=== PATIENT | female | born 1990 | race Caucasian/White ===

== ENCOUNTER 2019-10-29 09:56 | Emergency (ER) | payer OTHER, SELFPAY ==
[2019-10-29 10:00] VITALS: BP 132/82; PULSE 80; RESP 18; TEMP 37.1; O2SAT 98
--- NOTE | 2019-10-29 11:07 | ED.ABDPAIN ---
HPI - Abdominal Pain General Chief Complaint: Abdominal Pain Stated Complaint: stomach issues Time Seen by Provider: 10/29/19 10:14 Source: patient Mode of arrival: Ambulatory Limitations: no limitations History of Present Illness HPI narrative: Patient comes emergency department stating that her boss told her to come in because she is having diarrhea and low abdominal cramping. The patient states she is on the 2nd day of her period, which also causes her to cramps. She states that every time she is ready to have another bout of diarrhea, her cramps become much worse. Patient denies blood in her stools. She states that the diarrhea started around midnight last night. She denies any nausea or vomiting. No fevers. No abdominal pain other than cramping. She states she has not had any sick contacts that she knows of. No exotic travel. No new medications. No other complaints at this time. Related Data Home Medications Medication Instructions Recorded Confirmed citalopram 40 mg PO DAILY 10/29/19 10/29/19 Previous Rx's Medication Instructions Recorded loperamide [Imodium A-D] 2 mg PO Q4H PRN #10 tab 10/29/19 Allergies Allergy/AdvReac Type Severity Reaction Status Date / Time No Known Drug Allergies Allergy Verified 10/29/19 10:38 Review of Systems Constitutional Constitutional: Denies chills, Denies fatigue, Denies fever(s), Denies frequent falls, Denies lethargy and Denies weakness Eyes Eyes: Denies change in vision, Denies eye discharge, Denies irritation and Denies loss of vision ENT Ears, Nose, Mouth, and Throat: Denies change in voice, Denies dizziness, Denies neck pain, Denies sore throat and Denies throat swelling Cardiovascular Cardiovascular: Denies chest pain, Denies irregular heart rhythm, Denies lightheadedness, Denies palpitations, Denies dyspnea, Denies dyspnea on exertion and Denies orthopnea Respiratory Respiratory: Denies cough, Denies dyspnea, Denies dyspnea on exertion and Denies wheezing Gastrointestinal Gastrointestinal: Denies change in bowel habits, Reports cramping, Reports diarrhea, Denies nausea and Denies vomiting Genitourinary Genitourinary: Denies hematuria, Denies flank pain, Denies urinary incontinence and Denies urinary urgency Musculoskeletal Musculoskeletal: Denies back pain, Denies muscle weakness, Denies neck pain, Denies numbness and Denies tingling Integumentary/Breasts Skin/Breast: Denies pruritus, Denies erythema, Denies rash and Denies wounds Neurologic Neurologic: Denies behavioral changes, Denies confusion, Denies dizziness, Denies frequent falls, Denies loss of vision, Denies numbness, Denies tingling and Denies weakness Psychiatric Psychiatric: Denies anxiety, Denies behavioral changes, Denies confusion, Denies depression, Denies homicidal ideation and Denies suicidal ideation Endocrine Endocrine: Denies fatigue, Denies flushing and Denies palpitations Hematologic/Lymphatic Hematologic/Lymphatic: Denies easy bruising Allergic/Immunologic Allergic/Immunologic: Denies urticaria, Denies throat swelling and Denies wheezing Patient History Medical History Healthy adult (Acute) Social History Smoking Status: Never smoker Smoking Status: Never smoker alcohol intake frequency: 0-2 drinks per day Substance Use Type: does not use Exam Initial Vital Signs Initial Vital Signs: Vital Signs Temperature 98.7 F 10/29/19 10:00 Pulse Rate 80 10/29/19 10:00 Respiratory Rate 18 10/29/19 10:00 Blood Pressure 132/82 10/29/19 10:00 Pulse Oximetry 98 10/29/19 10:00 Const General: cooperative and well developed Nutritional Appearance: well nourished Orientation: alert, awake, oriented x3 and not confused [facility] Head: normocephalic and atraumatic Ears: external ears normal Nose: external nose normal and No nasal discharge Face and sinus: face symmetric and No dry mucous membranes Mouth: oral mucosae normal and moist mucous membranes Teeth and gingiva: dentition normal Eyes General: appearance normal, both eyes and all related structures Eyelids: eyelids normal Conjunctivae: conjunctivae normal Sclera: sclerae normal Pupils: PERRL EOM: EOM intact bilaterally Neck Neck: normal visual inspection, trachea midline, No lymphadenopathy, No midline deformity and No JVD Lymphatic: No lymphedema Chest Chest: normal inspection of the chest Resp Effort & Inspection: normal respiratory effort, able to speak in complete sentences, no respiratory distress and no use of accessory muscles Auscultation: clear to auscultation bilaterally, no rales, no rhonchi and no wheezes Cardio Rate: regular rate Rhythm: regular rhythm Heart Sounds: no click, no gallops, no murmurs and no rubs Pulses: normal peripheral pulses GI Inspection: non-distended Palpation: soft, no hepatosplenomegaly, No guarding, No pulsatile mass and No tender Auscultation: normal bowel sounds Back/Spine/Pelvis Back: No CVA tenderness Cervical Spine: cervical ROM normal and No pain with cervical ROM Thoracic/Lumbar Spine: thoracic and lumbar spine normal to inspection Skin General: no rashes or lesions noted, No jaundice and No petechiae Neuro General: alert, oriented x3, gait normal and no focal motor deficits Speech: speech normal Extrem General: full ROM, no clubbing, cyanosis or edema, no pedal edema and no calf tenderness Psych Appearance: well kempt Mental Status: mental status grossly normal Attitude: cooperative Thought Content: normal and suicidality Judgment: judgment good Course Course Course Narrative: The patient was very well-appearing, and I did discuss with her that this is most likely a viral illness, and as such, will be self-limited. We've discussed home management of the symptoms, as well as the usual indications for return. Vital Signs Vital signs: Vital Signs - 8 hr 10/29/19 10:00 Temperature 98.7 F Pulse Rate 80 Respiratory Rate 18 Blood Pressure 132/82 Pulse Oximetry 98 MDM - Abdominal Pain Medical Records Attestation: I reviewed the patient's medical records. Discharge Plan Departure Patient Disposition: Home Clinical Impression: Enteritis Discharge Date/Time: 10/29/19 11:13 Instructions: DI for Diarrhea and Traveler's Diarrhea -- Adult Prescriptions: New loperamide [Imodium A-D] 2 mg tablet 2 mg PO Q4H PRN (Reason: loose stool) Qty: 10 RF: 0 No Action citalopram 40 mg tablet 40 mg PO DAILY RF: 0 Stand Alone Forms: Work Release Note
[2019-10-29 11:12] VITALS: BP 122/78; PULSE 73; RESP 14; O2SAT 100
== END 2019-10-29 11:13 | disposition home or self-care (01) ==
PROVIDERS: Emergency Provider Emergency Medicine
DX: K52.9 Noninfective gastroenteritis and colitis, unspecified (principal)
CPT/HCPCS: 99281

== ENCOUNTER 2019-12-12 07:45 | Emergency (ER) | payer OTHER, SELFPAY ==
[2019-12-12 07:51] VITALS: BP 147/78; PULSE 76; RESP 16; TEMP 36.6; O2SAT 98; BMI 25.9
--- NOTE | 2019-12-12 07:55 | ED_ITS ---
HPI - Skin/Abscess/Foreign Bdy General Chief complaint: Skin/Abscess/Foreign Body Stated complaint: LACERATION TO HEAD,RIGHT EYE SWOLLEN Time Seen by Provider: 12/12/19 07:54 Source: patient Mode of arrival: Ambulatory Limitations: no limitations History of Present Illness HPI narrative: 29-year-old female nonsmoker with noncontributory medical history presents with a chief complaint of waking up with forehead swelling and swelling above her left eye and eyelid. She has no visual change in denies any pain, redness nor fever or chills. She was seen at an outside facility a few days ago after tripping and falling and suffering a laceration on her forehead which was repaired with sutures. She did not have imaging but denied any loss of consciousness, decreased mental status, vomiting or use of blood thinners. She is otherwise well and free of complaint MD complaint: other Onset (ago): hour(s) Tetanus up to date: yes Location: face Severity: mild Relieving factors: none Exacerbating factors: none Associated symptoms: denies other symptoms Treatments prior to arrival: none Related Data Home Medications Medication Instructions Recorded Confirmed citalopram 40 mg PO DAILY 10/29/19 10/29/19 Previous Rx's Medication Instructions Recorded loperamide [Imodium A-D] 2 mg PO Q4H PRN #10 tab 10/29/19 Allergies Allergy/AdvReac Type Severity Reaction Status Date / Time No Known Drug Allergies Allergy Verified 12/12/19 07:51 Review of Systems Constitutional Constitutional: Denies chills, Denies fatigue, Denies fever(s), Denies frequent falls, Denies lethargy and Denies weakness Eyes Eyes: Denies change in vision, Denies eye discharge, Denies irritation and Denies loss of vision ENT Ears, Nose, Mouth, and Throat: Denies change in voice, Denies dizziness, Denies neck pain, Denies sore throat and Denies throat swelling Cardiovascular Cardiovascular: Denies chest pain, Denies irregular heart rhythm, Denies lightheadedness, Denies palpitations, Denies dyspnea, Denies dyspnea on exertion and Denies orthopnea Respiratory Respiratory: Denies cough, Denies dyspnea, Denies dyspnea on exertion and Denies wheezing Gastrointestinal Gastrointestinal: Denies abdominal pain, Denies change in bowel habits, Denies diarrhea, Denies nausea and Denies vomiting Genitourinary Genitourinary: Denies hematuria, Denies flank pain, Denies urinary incontinence and Denies urinary urgency Musculoskeletal Musculoskeletal: Denies back pain, Denies muscle weakness, Denies neck pain, Denies numbness and Denies tingling Integumentary/Breasts Skin/Breast: Denies pruritus, Denies erythema, Denies rash and Denies wounds Neurologic Neurologic: Denies behavioral changes, Denies confusion, Denies dizziness, Denies frequent falls, Denies loss of vision, Denies numbness, Denies tingling and Denies weakness Psychiatric Psychiatric: Denies anxiety, Denies behavioral changes, Denies confusion, Denies depression, Denies homicidal ideation and Denies suicidal ideation Endocrine Endocrine: Denies fatigue, Denies flushing and Denies palpitations Hematologic/Lymphatic Hematologic/Lymphatic: Denies easy bruising Allergic/Immunologic Allergic/Immunologic: Denies urticaria, Denies throat swelling and Denies wheezing Patient History Medical History Healthy adult (Acute) Social History Smoking Status: Never smoker Smoking Status: Never smoker alcohol intake frequency: 0-2 drinks per day Substance Use Type: does not use Exam Narrative Exam Narrative: GEN: AOx3 and in mild distress HEAD: Left forehead Incision is clean, dry, and intact, with appropriate signs of healing. Mild edema to forehead and upper lid without pain or erythema. Consistent with gravity dependent edema from wound. No signs of infection EYES: Pupils are equal, round, and reactive to light and accommodation. Extraoc cular muscles are intact bilaterally. There is no subconjunctival hemorrhage or exudate. Normal fundoscopic CHEST: Lungs are clear to auscultation bilaterally and free of wheezes, rales, or rhonchi. Heart rate is regular rhythm, there are no murmurs, clicks, rubs, or gallops. There is no chest wall tenderness. ABD: Abdomen is soft and nontender. There is no guarding or rebound. Bowel sounds are normal in all 4 quadrants. There is no mass or organomegaly. EXT: Full painless ROM of all extremities with no loss of sensation or strength. SKIN: Warm, pink, and dry. No erythema or rash Initial Vital Signs Initial Vital Signs: Vital Signs Temperature 97.8 F 12/12/19 07:51 Pulse Rate 76 12/12/19 07:51 Respiratory Rate 16 12/12/19 07:51 Blood Pressure 147/78 H 12/12/19 07:51 Pulse Oximetry 98 12/12/19 07:51 Course Vital Signs Vital signs: Vital Signs - 8 hr 12/12/19 07:51 Temperature 97.8 F Pulse Rate [Left] 76 Respiratory Rate 16 Blood Pressure [Left Arm] 147/78 H Pulse Oximetry 98 MDM - Skin/Abscess/Foreign Bdy MDM Narrative Medical decision making narrative: Patient with painless swelling of left forehead and upper lid with recent forehead laceration on the same side of her forehead. There is no redness, warmth or induration. This appears to be very consistent with swelling extending inferiorly from injury secondary to gravity. No signs of infection, abscess or other. Return precautions given and patient's questions answered to her apparent satisfaction Discharge Plan Departure Patient Disposition: Home Clinical Impression: Contusion of face Qualifiers: Encounter type: initial encounter Qualified Code(s): S00.83XA - Contusion of other part of head, initial encounter Discharge Date/Time: 12/12/19 07:58 Instructions: DI for Contusion Activity Restrictions/Additional Instructions: *You have been diagnosed with [facial contusion with gravity dependent swelling of left upper eyelid and forehead] *What to do: * continue to take medications as directed *Follow up with your primary care provider in 2-3 days, call for an appointment. Let them know you were seen in the Emergency Department and that we ask that you be seen in follow up *Return to ER if you should have any new, worsening or concerning symptoms Prescriptions: No Action citalopram 40 mg tablet 40 mg PO DAILY RF: 0 loperamide [Imodium A-D] 2 mg tablet 2 mg PO Q4H PRN (Reason: loose stool) Qty: 10 RF: 0
--- NOTE | 2019-12-12 07:55 | PC.NURSE ---
pt woke with swelling to left eye, difficulty opening eye completely due to swelling. fell off horse on monday seen at [facility]. no new pain or symptoms.
== END 2019-12-12 07:58 | disposition home or self-care (01) ==
PROVIDERS: Emergency Provider Emergency Medicine
DX: S00.83XA Contusion of other part of head, initial encounter (principal)
CPT/HCPCS: 99281